=== PATIENT | female | born 1985 | race Caucasian/White ===

== ENCOUNTER 2018-08-28 09:59 | Emergency (ER) | payer OTHER ==
[~2018-08-28] VITALS: Ht 160 cm; Wt 45.4 kg
[~2018-08-28 09:59] MED LIST: ZITHROMAX TRI-500 MG PO
== END 2018-08-28 13:14 | disposition home or self-care (01) ==
LOC: ER 09:59
DX: M79.645 Pain in left finger(s) (principal)